=== PATIENT | male | born 1950 | race Caucasian/White ===

== ENCOUNTER 2017-08-26 11:01 | Inpatient (IN) | payer OTHER ==
[~2017-08-26] VITALS: Ht 182.9 cm; Wt 69.4 kg
[2017-08-26 11:09] VITALS: Ht 182.9 cm; Wt 69.4 kg
[2017-08-26 12:06] LABS: BASOPHIL % 0.2 % (0-2); PLATELET COUNT 298 x10^3mcL (130-400)
[2017-08-26 12:29] LABS: CALCIUM 9.2 mg/dL (8.5-10.1); CARBON DIOXIDE 27.9 mmol/L (21-32); CHLORIDE SERUM 103 mmol/L (98-107); CREATININE SERUM 0.9 mg/dL (0.7-1.3); GFR1 > 60 mL/min; GLUCOSE SERUM 127 mg/dL (74-106); POTASSIUM SERUM 3.7 mmol/L (3.5-5.1); SODIUM SERUM 139 mmol/L (136-145)
[2017-08-26 12:36] LABS: ALKALINE PHOSPHATASE 74 U/L (46-116); ALT/SGPT 25 U/L (16-63); AST/SGOT 17 U/L (15-37); BILIRUBIN TOTAL 1.01 mg/dL (0.20-1.00); TOTAL PROTEIN, SERUM 7.4 g/dL (6.4-8.2)
[2017-08-26 12:51] LABS: ALBUMIN 3.1 g/dL (3.4-5.0)
[2017-08-26] MEDS ORDERED: LIPI10 PO (13:14)
[2017-08-26 14:16] LABS: MAGNESIUM 2.2 mg/dL (1.8-2.4)
[2017-08-26 14:22] LABS: CHOLESTEROL/HDL RATIO 2.7
[2017-08-26 14:26] VITALS: BP 106/68
[2017-08-26 17:07] VITALS: BP 117/69
[2017-08-26 18:52] LABS: T3 TOTAL 0.82 ng/mL
[2017-08-26 20:01] LABS: microscopic required? YES; urine erythrocyte NEGATIVE (NEGATIVE)
[2017-08-26 20:08] LABS: AMPHETAMINE QUAL UR NONE DETECTED (See below)
[2017-08-26 20:09] LABS: FREE T4 0.89 ng/dL (0.76-1.46)
[2017-08-26 20:11] LABS: FREE THYROXINE INDEX 1.5 ug/dL (1.4-4.5)
[2017-08-26 20:36] VITALS: BP 94/61
[2017-08-27 05:26] VITALS: BP 109/71
[2017-08-27 06:21] LABS: BASOPHIL % 0.5 % (0-2); PLATELET COUNT 299 x10^3mcL (130-400); RED CELL DISTRIBUTION WIDTH 13.6 % (11.5-14.5)
[2017-08-27 06:53] LABS: CALCIUM 8.9 mg/dL (8.5-10.1); CARBON DIOXIDE 25.1 mmol/L (21-32); CHLORIDE SERUM 103 mmol/L (98-107); CREATININE SERUM 0.9 mg/dL (0.7-1.3); GFR1 > 60 mL/min; GLUCOSE SERUM 94 mg/dL (74-106); MAGNESIUM 2.1 mg/dL (1.8-2.4); PHOSPHOROUS 3.2 mg/dL (2.5-4.9); POTASSIUM SERUM 3.8 mmol/L (3.5-5.1); SODIUM SERUM 136 mmol/L (136-145)
[2017-08-27 08:39] VITALS: BP 118/62
[2017-08-27 13:06] VITALS: BP 115/70
[2017-08-27 17:37] VITALS: BP 125/79
[2017-08-27 20:49] VITALS: BP 111/69
[2017-08-28 06:13] VITALS: BP 109/69
[2017-08-28 06:52] LABS: BASOPHIL % 0.5 % (0-2); PLATELET COUNT 344 x10^3mcL (130-400); RED CELL DISTRIBUTION WIDTH 13.5 % (11.5-14.5)
[2017-08-28 07:13] LABS: CARBON DIOXIDE 27.9 mmol/L (21-32); CHLORIDE SERUM 104 mmol/L (98-107); CREATININE SERUM 0.8 mg/dL (0.7-1.3); GFR1 > 60 mL/min; GLUCOSE SERUM 102 mg/dL (74-106); SODIUM SERUM 138 mmol/L (136-145)
[2017-08-28 08:58] VITALS: BP 117/69
[2017-08-28] MEDS ORDERED: LEVAQUIN750 MG PO (11:11)
[2017-08-28] MEDS ORDERED: CLEOCIN HCL300 MG PO (11:12)
[2017-08-28] MEDS ORDERED: LAC PO (11:12)
[2017-08-28 12:40] VITALS: BP 115/66
[2017-08-28 12:54] VITALS: BP 115/66
== END 2017-08-28 13:30 | disposition home or self-care (01) | DRG 557 ==
LOC: ED 11:01 → DU 13:15
PROVIDERS: Emergency Medicine; Family Medicine; Family Medicine Sports Medicine
PROC: 0J9P00Z Drainage of Left Lower Leg Subcutaneous Tissue and Fascia with Drainage Device, Open Approach (ICD-10-PCS; principal; 2017-08-28)
DX: M71.062 Abscess of bursa, left knee (principal); N17.0 Acute kidney failure with tubular necrosis; E44.0 Moderate protein-calorie malnutrition; B95.61 Methicillin susceptible Staphylococcus aureus infection as the cause of diseases classified elsewhere; E78.5 Hyperlipidemia, unspecified; R73.03 Prediabetes
CPT/HCPCS: 83880; 84439; J0696; J1956; J2405; J3370; J3490; J7030; Q0092